=== PATIENT | female | born 1960 | race Two or more races ===

== ENCOUNTER 2025-05-22 05:34 | Day surgery (SDC) | payer OTHER ==
[2025-05-16 13:57] LABS: BASO % 0.4 % (0.1-1.2); EOS # 0.01 (0.04-0.54); EOS % 0.1 % (0.7-7.0); LYMPH # 3.29 (1.18-3.74); LYMPH % 24.5 % (19.3-53.1); MEAN PLATELET VOLUME 11.70 fl (9.4-12.4); MONO # 1.05 (0.24-0.82); MONO % 7.8 % (4.7-12.5); NEUT # 8.92 (1.56-6.13); NEUT % 66.3 % (34.0-71.1); RED CELL DISTRIBUTION WIDTH 13.0 % (11.6-14.4); URINE APPEARANCE Clear; URINE BILIRRUBIN Negative (NEGATIVE); URINE BLOOD Negative; URINE COLOR Yellow; URINE GLUCOSE Negative (NEGATIVE); URINE KETONE Negative (NEGATIVE); URINE LEUKOCYTE Small; URINE NITRATE Negative; URINE PROTEIN Negative (NEGATIVE); URINE UROBILINOGEN 0.2 E.U./dl
[2025-05-16 13:58] LABS: URINE BACTERIA 129.2 uL (0.0-1933); URINE EPITHELIAL CELLS 3.6 uL (0.0-38.8); URINE RBC 5.9 uL (0.0-20.8); URINE WBC 9.0 uL (0.0-23.2)
[2025-05-16 14:00] LABS: URINE CAST 0.00 uL (0.0-1.40)
[2025-05-16 14:22] LABS: INR 1.04
[2025-05-16 15:04] LABS: ALT/SGPT 25.0 U/L (12-78); AST/SGOT 12.0 U/L (15-37); BILIRUBIN TOTAL 0.45 mg/dL (0.3-1.2); BUN CREA RATIO 16.0 (7.0-25.0); CHOL HDL RATIO 2.4 (0-5.0); CREATININE SERUM 0.86 mg/dL (0.55-1.02); GFR 66.64; GLOBULINA 3.4 G/DL (2.4-3.5); GLUCOSE FASTING 81.0 mg/dL (65-100); HDL 87.0 mg/dl (40-60); LDL 96.0 mg/dl (0-130); OSMOLALITY SERUM 281.0 MOSM/KG (275-295); VLDL 28.0 (0-39)
[~2025-05-22 05:34] MED LIST: SYNTHROID100 MCG PO
[2025-05-22] MEDS ORDERED: CEFAZOLIN SODIUM 1,000 MG VIAL ONE (06:24)
[2025-05-22] MEDS ORDERED: BUPIVACAINE HCL/MPF 0.5% 30ML VIAL ONE (07:20)
[2025-05-22] MEDS ORDERED: LIDOCAINE HCL 1%/EPINEPHRINE 20ML VIAL IJ ONE (07:21)
[2025-05-22] MEDS ORDERED: POVIDONE-IODINE 118 ML BOTT TOP ONE (07:21)
[2025-05-22] MEDS ORDERED: PERCOCET 5-3251 EACH PO (09:58)
[2025-05-22] MEDS ORDERED: DUI500 PO (09:58)
== END 2025-05-22 11:35 | disposition home or self-care (01) ==
LOC: CIR.AMB 05:34
PROVIDERS: ATTEND Orthopaedic Surgery
DX: S52.572A Other intraarticular fracture of lower end of left radius, initial encounter for closed fracture (principal)
CPT/HCPCS: 25609; 20902; L8699